=== PATIENT | male | born 1990 | race Caucasian/White ===

== ENCOUNTER 2020-09-30 03:36 | Emergency (ER) | payer OTHER ==
[~2020-09-30] VITALS: Ht 180.3 cm; Wt 120.0 kg
[2020-09-30 03:37] VITALS: BP 139/94
[2020-09-30] MEDS ORDERED: NOXI1TAB PO (03:44)
--- NOTE | 2020-09-30 04:42 | REPVR ---
PROCEDURE INFORMATION: Exam: XR Right Clavicle, Complete Exam date and time: 09/30/2020 4:09 AM Age: 30 years old Clinical indication: Pain; Other: Clavicle; Additional info: Shoulder checked by another person TECHNIQUE: Imaging protocol: XR Right clavicle complete. Any number of views. COMPARISON: No relevant prior studies available. FINDINGS: Bones/joints: Joint spaces are normal. No fracture or malalignment. Soft tissues: Normal. IMPRESSION: No fracture or malalignment. Electronically signed by: Kishore Christy On 09/30/2020 04:42:57 AM
--- NOTE | 2020-09-30 04:43 | REPVR ---
PROCEDURE INFORMATION: Exam: XR Right Shoulder Exam date and time: 09/30/2020 4:09 AM Age: 30 years old Clinical indication: Pain; Shoulder; Right; Additional info: Shoulder checked by another person TECHNIQUE: Imaging protocol: XR Right shoulder. Views: 2 or more views. COMPARISON: No relevant prior studies available. FINDINGS: Bones/joints: Joint spaces are normal. No fracture or malalignment. Soft tissues: Normal. IMPRESSION: No fracture or malalignment. Electronically signed by: Kishore Christy On 09/30/2020 04:44:13 AM
== END 2020-09-30 05:45 | disposition home or self-care (01) ==
LOC: M ED 03:36
DX: S40.011A Contusion of right shoulder, initial encounter (principal); X58.XXXA Exposure to other specified factors, initial encounter; Y92.89 Other specified places as the place of occurrence of the external cause; Y93.9 Activity, unspecified; Y99.0 Civilian activity done for income or pay; Z79.899 Other long term (current) drug therapy